=== PATIENT | female | born 1955 | race Caucasian/White ===

== ENCOUNTER 2023-02-02 11:07 | Day surgery (SDC) | payer MEDICARE, OTHER ==
[~2023-02-02] VITALS: Ht 162.6 cm; Wt 66.6 kg
[2023-02-02] MEDS ORDERED: MULT-215 PO (12:05)
[2023-02-02] MEDS ORDERED: GABA300C PO (12:05)
[2023-02-02] MEDS ORDERED: TURM500C4 PO (12:05)
[2023-02-02] MEDS ORDERED: ASPI-611 PO (12:05)
[2023-02-02] MEDS ORDERED: ATOR40TA71 PO (12:05)
[2023-02-02] MEDS ORDERED: PANT40TA54 PO (12:05)
[2023-02-02] MEDS ORDERED: ESTR42.53 VG (12:05)
[2023-02-02] MEDS ORDERED: IBUP-1985 PO (12:05)
[2023-02-02 12:11] VITALS: BP 132/87; PULSE 81; RESP 16; TEMP 97.4; O2SAT 97
[2023-02-02 12:17] VITALS: RESP 16; O2SAT 97
[2023-02-02 14:10] VITALS: BP 132/87; PULSE 81; RESP 16; O2SAT 97
[2023-02-02 14:18] VITALS: BP 147/72; PULSE 82; RESP 16; O2SAT 93
[2023-02-02 14:32] VITALS: BP 168/76; PULSE 81; RESP 16; O2SAT 91
== END 2023-02-02 14:40 | disposition home or self-care (01) ==
LOC: SSTAY O 11:07
PROVIDERS: ATTEND Radiology Vascular & Interventional Radiology
DX: R22.1 Localized swelling, mass and lump, neck (principal); M81.0 Age-related osteoporosis without current pathological fracture; I70.8 Atherosclerosis of other arteries; Z98.890 Other specified postprocedural states; Z88.0 Allergy status to penicillin; Z98.51 Tubal ligation status; Z79.899 Other long term (current) drug therapy; Z79.82 Long term (current) use of aspirin
CPT/HCPCS: 10005; 88173; 88305

== ENCOUNTER 2023-05-09 10:54 | Day surgery (SDC) | payer MEDICARE, OTHER ==
[~2023-05-09] VITALS: Ht 162.6 cm; Wt 65.6 kg
[~2023-05-09 10:54] MED LIST: ASPI-611 PO; ATOR40TA71 PO; ESTR42.53 VG; GABA300C PO; IBUP-1985 PO; MULT-215 PO; PANT40TA54 PO; TURM500C4 PO
[2023-05-09 11:11] VITALS: BP 183/85; PULSE 82; RESP 12; TEMP 98.2; O2SAT 100
[2023-05-09] MEDS ORDERED: ZINC220T3 PO (11:14)
[2023-05-09 12:20] VITALS: BP 183/85; PULSE 82; RESP 12; O2SAT 100
[2023-05-09 12:35] VITALS: BP 158/80; PULSE 74; RESP 12; O2SAT 95
== END 2023-05-09 13:00 | disposition short-term general hospital (02) ==
LOC: SSTAY O 10:54
PROVIDERS: ATTEND Radiology Diagnostic Radiology
DX: K11.8 Other diseases of salivary glands (principal); D11.0 Benign neoplasm of parotid gland; E78.00 Pure hypercholesterolemia, unspecified; Z88.0 Allergy status to penicillin; Z79.899 Other long term (current) drug therapy; Z79.82 Long term (current) use of aspirin
CPT/HCPCS: 10005; 76942